=== PATIENT | female | born 1945 | race Two or more races ===

== ENCOUNTER → 2023-10-30 | Emergency (ER) | payer OTHER ==
[~2023-10-30] VITALS: Ht 152.4 cm; Wt 70.3 kg
[~2023-10-30] MED LIST: LANTUS SOL100 UNIT/1 SQ
== END | disposition home or self-care (01) ==
LOC: ER 11:56
DX: H57.12 Ocular pain, left eye (principal); E11.9 Type 2 diabetes mellitus without complications; Z79.4 Long term (current) use of insulin; I10 Essential (primary) hypertension
CPT/HCPCS: 96372; 99284; J1885